=== PATIENT | female | born 2000 | race Two or more races ===

== ENCOUNTER 2019-05-21 16:57 | Emergency (ER) | payer OTHER ==
[~2019-05-21] VITALS: Ht 149.9 cm; Wt 56.7 kg
[2019-05-21] MEDS ORDERED: ORPHENADRINE C100 MG (17:26)
[2019-05-21] MEDS ORDERED: MOTRIN IB200 MG (17:27)
[2019-05-21] MEDS ORDERED: ZYRTEC10 MG (17:27)
== END 2019-05-21 23:50 | disposition home or self-care (01) ==
LOC: ER 16:57
DX: J11.1 Influenza due to unidentified influenza virus with other respiratory manifestations (principal); K52.89 Other specified noninfective gastroenteritis and colitis; B96.0 Mycoplasma pneumoniae [M. pneumoniae] as the cause of diseases classified elsewhere

== ENCOUNTER 2019-05-24 06:02 | Emergency (ER) | payer OTHER ==
[~2019-05-24] VITALS: Ht 149.9 cm; Wt 56.7 kg
[~2019-05-24 06:02] MED LIST: MOTRIN IB200 MG; ORPHENADRINE C100 MG; ZYRTEC10 MG
[2019-05-24] MEDS ORDERED: ZITHROMAX500 MG (06:16)
[2019-05-24] MEDS ORDERED: OSEL75CA (06:16)
== END 2019-05-24 11:18 | disposition home or self-care (01) ==
LOC: ER 06:02
DX: R10.13 Epigastric pain (principal); R19.7 Diarrhea, unspecified